=== PATIENT | female | born 1995 | race African-American/Black ===

== ENCOUNTER 2018-05-20 10:03 | Emergency (ER) | payer MEDICAID ==
[~2018-05-20] VITALS: Ht 177.8 cm; Wt 113.0 kg
[2018-05-20] MEDS ORDERED: ALBU18HF2 IH (10:10)
[2018-05-20] MEDS ORDERED: KETOROLAC 30MG/ML VIAL IV ONE (12:45)
[2018-05-20] MEDS ORDERED: CLINDAMYCIN 900 MG in DEXTROSE 5% WATER 50 ML IV ONE (12:45)
[2018-05-20] MEDS ORDERED: SODIUM CHLORIDE 0.9% 1,000 ML IV ONE (12:45)
[2018-05-20] MEDS ORDERED: DEXAMETHASONE 4MG/ML 1ML VIAL IV ONE (12:45)
[2018-05-20 13:09] LABS: BASOPHILS % 0.3 % (0.0-2.0); HEMATOCRIT. 36.2 % (36.0-48.0); HEMOGLOBIN. 12.7 g/dL (12.0-16.0); LYMPHOCYTES % 18.8 % (20.0-50.0); MEAN CORPUSCULAR VOLUME 76.8 fL (81.0-99.0); MEAN PLATELET VOLUME 7.6 fl (7.4-10.4); MONOCYTES % 12.7 % (2.0-8.0); NEUTROPHILS % 68.2 % (40.0-76.0); PLATELET 214 x1000/uL (130-400); RED BLOOD CELL COUNT 4.71 mill/uL (4.2-5.4)
[2018-05-20 13:14] LABS: CHLORIDE 106 mEq/L (98-107)
[2018-05-20 15:35] VITALS: BP 113/64
[2018-05-20] MEDS ORDERED: IOHEXOL-300 100 ML BOTTLE ONE (15:40)
== END 2018-05-20 15:37 | disposition home or self-care (01) ==
LOC: ER 10:14
DX: R50.9 Fever, unspecified (principal); J02.9 Acute pharyngitis, unspecified; J45.909 Unspecified asthma, uncomplicated
CPT/HCPCS: 36415; 70491; 80048; 81025; 85025; 87070; 87430; 96365; 96375; 99284; J1100; J1885; J3490; J7030; J7060; Q9967; Z7610

== ENCOUNTER 2019-04-10 00:09 | Emergency (ER) | payer MEDICAID ==
[~2019-04-10] VITALS: Ht 180.3 cm; Wt 100.0 kg
[~2019-04-10 00:09] MED LIST: ALBU18HF2 IH
[2019-04-10 05:55] VITALS: BP 121/69
== END 2019-04-10 05:55 | disposition home or self-care (01) ==
LOC: ER 00:09
DX: L25.9 Unspecified contact dermatitis, unspecified cause (principal); J45.909 Unspecified asthma, uncomplicated
CPT/HCPCS: 81025; 99283; Z7610